=== PATIENT | female | born 1945 | race Caucasian/White ===

== ENCOUNTER → 2017-09-24 10:16 | Outpatient (CLI) | payer MEDICARE | END | disposition home or self-care (01) | LOC: D.CT 10:16 | DX: I73.9 Peripheral vascular disease, unspecified (principal) ==

== ENCOUNTER 2017-11-19 05:56 | Outpatient (CLI) | payer MEDICARE ==
[~2017-11-19] VITALS: Ht 157.5 cm; Wt 54.5 kg
--- NOTE | ~2017-11-19 | HEMODYNAMI ---
PATIENT:JEREMIAS ESCOBAR MEDICAL RECORD: [id number] : 49 LOCATION:[facility] ADMISSION DATE: 11/19/17 Generatedon:11/19/201711:10 Patient name: JEREMIAS ESCOBAR Patient #: [id number] SSN: D OB: 1945 Date of study: 11/19/2017 Page: Of Hemodynamic Procedure Report Patient Data Patient Demographics Procedure consent was obtained First Name: JEREMIAS Gender: Female Last Name: SHAWN : 1945 Middle Initial: MIGUE Age: 72 year(s) Patient #: [id number] Race: Unknown Additional ID: [id number] Contact details [address]: [address] [place] [address] State: [place] City: [place] Zip code: [address] Past Medical History Allergies: No allergy information Admission Admission Data Admission Date: 11/19/2017 Admission Time: 5:56 Procedure Procedure Types Cath Procedure Peripheral Cath Diagnostic Procedure Abd/Extremity Extremities Procedure Description Procedure Date Procedure Date: 11/19/2017 Procedure Start Time: 8:36 Procedure Staff Name Function Hermes Wong MD Performing Physician Roge Dueñas RT Monitor Agustina Kaur RT Scrub Galina Cadena RN Nurse Anitra Conroy RN Nurse Procedure Data Cath Procedure Fluoroscopy Diagnostic fluoroscopy Total fluoroscopy Time: time: 21.6 min 21.6 min Diagnostic fluoroscopy Total fluoroscopy dose: 301 dose: 301 mGy mGy Contrast Material Contrast Material Type Amount (ml) Isovue 300 180 Entry Location Entry Primary Successful Side Size Upsize Upsize Entry Closure Succes sful Closure Location (Fr) 1 (Fr) 2 (Fr) Remarks Device Remarks Femoral Left 5 Fr Exoseal artery Procedure Medications Medication Administration Route Dosage Lidocaine 1% added to field 20 Heparin Flush Bag added to field 3 bags (1000units/500ml NS) Versed 1 mg Fentanyl I.V. 50 mcg Versed 1 mg Fentanyl I.V. 50 mcg Heparin Bolus I.V. 5000 units Nitroglycerin IC/IA I.A. 200 mcg Nitroglycerin IC/IA I.A. 200 mcg Versed 1 mg Fentanyl I.V. 50 mcg Nitroglycerin IC/IA I.A. 200 mcg Versed 1 mg Fentanyl I.V. 50 mcg Heparin Bolus I.V. 2000 units Hemodynamics Rest Heart Rate: 74 (bpm) Snapshots Pre Cath Intra NCS Post Cath Vital Signs Time Heart Resp SPO2 etCO2 NIBP (mmHg) Rhythm Pain Sedation Rate (ipm) (%) (mmHg) Status Level (bpm) 8:21:49 72 22 96 0 147/62(135) NSR 0 (11) 10(A) , No pain 8:26:07 74 22 95 0 139/63(88) NSR 0 (11) 10(A) , No pain 8:30:23 70 23 94 26 119/59(89) NSR 0 (11) 10(A) , No pain 8:34:31 68 21 96 24 129/59(111) NSR 0 (11) 10(A) , No pain 8:38:45 61 20 94 20 123/52(95) NSR 0 (11) 10(A) , No pain 8:43:01 64 14 91 31.5 94/43(79) NSR 0 (11) 10(A) , No pain 8:47:05 60 23 95 22 101/49(86) NSR 0 (11) 10(A) , No pain 8:51:11 64 11 94 21 96/46(75) NSR 0 (11) 10(A) , No pain 8:55:16 65 13 92 22 102/45(84) NSR 0 (11) 10(A) , No pain 8:59:24 59 14 92 26 103/46(84) NSR 0 (11) 10(A) , No pain 9:03:32 67 29 97 26.2 103/44(79) NSR 0 (11) 10(A) , No pain 9:07:46 68 18 97 34.5 113/43(75) NSR 0 (11) 10(A) , No pain 9:11:54 71 18 97 30.8 105/53(82) NSR 0 (11) 10(A) , No pain 9:16:02 77 17 96 27.7 88/45(56) NSR 0 (11) 10(A) , No pain 9:20:06 68 22 96 30.8 96/43(77) NSR 0 (11) 10(A) , No pain 9:24:13 68 25 96 27.7 83/40(64) NSR 0 (11) 10(A) , No pain 9:27:28 64 12 96 31.5 91/44(64) NSR 0 (11) 10(A) , No pain 9:31:34 69 14 96 17.2 93/42(74) NSR 0 (11) 10(A) , No pain 9:35:39 63 22 97 30 92/40(61) NSR 0 (11) 10(A) , No pain 9:39:41 73 16 97 31.5 94/48(72) NSR 0 (11) 10(A) , No pain 9:43:42 67 17 98 31.5 109/50(66) NSR 0 (11) 10(A) , No pain 9:47:48 70 22 100 31.5 120/54(99) NSR 0 (11) 10(A) , No pain 9:51:58 67 23 100 30 121/58(93) NSR 0 (11) 10(A) , No pain 9:56:10 72 20 100 25.5 111/52(73) NSR 0 (11) 10(A) , No pain 10:00:16 82 10 99 36 102/57(83) NSR 0 (11) 10(A) , No pain 10:04:18 76 11 97 31.5 107/59(84) NSR 0 (11) 10(A) , No pain 10:08:25 69 11 95 0 115/51(71) NSR 0 (11) 10(A) , No pain 10:12:38 68 12 95 0.7 101/44(80) NSR 0 (11) 10(A) , No pain 10:16:45 61 9 95 21.7 92/45(71) NSR 0 (11) 10(A) , No pain 10:20:49 56 18 95 10.5 88/45(68) NSR 0 (11) 10(A) , No pain 10:24:51 64 19 94 9.7 104/47(72) NSR 0 (11) 10(A) , No pain 10:29:01 61 23 95 9.7 99/40(92) NSR 0 (11) 10(A) , No pain 10:33:08 60 19 94 6 88/43(67) NSR 0 (11) 10(A) , No pain 10:37:12 63 23 96 8.2 101/43(77) NSR 0 (11) 10(A) , No pain 10:41:20 62 24 9 100/46(88) NSR 0 (11) 10(A) , No pain 10:45:26 61 24 9.7 102/45(63) NSR 0 (11) 10(A) , No pain 10:49:29 62 9 76 16.5 118/58(108) NSR 0 (11) 10(A) , No pain 10:53:35 76 11 100 23.3 124/68(84) NSR 0 (11) 10(A) , No pain 10:57:45 75 13 27 125/59(95) NSR 0 (11) 10(A) , No pain 11:01:53 77 14 95 31.5 114/65(86) NSR 0 (11) 10(A) , No pain 11:05:57 67 12 31.6 122/68(93) NSR 0 (11) 10(A) , No pain 11:09:56 42.1 No Cuff NSR 0 (11) 10(A) , No pain Medications Time Medication Route Dose Verified Delivered Reason Notes Effec tiveness by by 8:15:24 Lidocaine 1% added 20ml Hermes Mirza used for to vial Judith Wong MD procedure field MARRERO 8:15:41 Heparin Flush added 3 Hermes Mirza used for Bag to bags Judith Wong MD procedure (1000units/500ml field MARRERO NS) 8:35:29 Versed 1 mg Hermes Simonody for Rafiq Wong RN sedation 8:36:26 Fentanyl I.V. 50 Hermes Anitra for mcg Rafiq Wong RN sedation 8:39:32 Versed 1 mg Hermes Anitra for Rafiq Wong RN sedation 8:39:39 Fentanyl I.V. 50 Hermes Ayoub for mcg Rafiq Wong RN sedation 9:10:48 Heparin Bolus I.V. 5000 Hermes Anitra used for units Rafiq Wong RN procedure 9:15:33 Nitroglycerin I.A. 200 Hermes Hermes used for IC/IA mcg Judith Wong MD procedure 9:20:53 Nitroglycerin I.A. 200 Hermes Mirza used for IC/IA mcg Judith Wong MD procedure 9:31:36 Versed 1 mg Hermes Anitra for Rafiq Wong RN sedation 9:31:45 Fentanyl I.V. 50 Hermes Anitra for mcg Rafiq Wong RN sedation 9:58:14 Nitroglycerin I.A. 200 Hermes Mirza used for IC/IA mcg Judith Wong MD procedure 10:06:03 Versed 1 mg Hermes Anitra for Rafiq Wong RN sedation 10:06:18 Fentanyl I.V. 50 Hermes Anitra for mcg Rafiq Wong RN sedation 10:14:06 Heparin Bolus I.V. 2000 Hermes Anitra used for units Rafiq Wong RN procedure Procedure Log Time Note 8:01:11 Galina Cadena RN sent for patient. Start room use. 8:01:14 Time tracking: Regular hours (M-F 7:00 - 5:00) 8:01:28 Plan of Care:Hemodynamics will remain stable., Cardiac rhythm will remain stable., Comfort level will be maintained., Respiratory function will remain adequate., Patient/ family verbilizes understanding of procedure., Procedure tolerated without complication., Recovers from procedure without complications.. 8:01:41 Patient received from Outpatients to IR Alert and oriented. Tansferred to table in Supine position. 8:01:44 Correct patient and procedure confirmed by team. 8:01:46 Signed procedure consent form obtained from patient. 8:01:49 ECG and BP/O2 sat monitors applied to patient. 8:01:51 Full Disclosure recording started 8:01:52 - 8:02:00 H&P Date Dictated: 11/19/2017 H&P Addendum completed by physician on day of procedure. (MUST COMPLETE FOR ALL OUTPATIENTS). 8:02:02 Pre-procedure instructions explained to patient. 8:02:02 Pre-op teaching completed and patient verbalized understanding. 8:02:13 Family in waiting room. 8:02:27 Use device set IR Diagnostic 8:02:29 ACIST Syringe (89506) opened to sterile field. 8:02:30 ACIST Hand Control (61516) opened to sterile field. 8:02:30 ACIST Manifold (08905) opened to sterile field. 8:02:30 Bag Decanter (2001S) opened to sterile field. 8:02:31 Sterile Angiographic Pack opened to sterile field. 8:02:31 Tegaderm 4 x 4 (1626W) opened to sterile field. 8:09:43 Patient NPO since Midnight. 8:09:50 Is the patient allergic to Iodine/contrast media? No. 8:09:51 Is patient on blood thinner?Yes 8:09:54 ACC The patient was administered the following blood thiners within the last 24 hours: ACCAspirin, ACCPlavix 8:09:56 - 8:09:57 ----Pre-sedation anethsthesia assessment.---- 8:10:00 Previous problem with sedation/anesthesia? No ? 8:10:01 Snore? Yes 8:10:03 Sleep apnea? No 8:10:04 Deviated septum? No 8:10:05 Opens mouth fully? Yes 8:10:06 Sticks out tongue? Yes 8:10:16 Airway obstruction? No ? 8:10:18 Dentures? No ? 8:10:26 Pre procedure: right dorsailis pedis pulse Doppler 8:10:30 Pre procedure: left dorsailis pedis pulse Doppler 8:10:33 Pre procedure: right posterior tibial pulse Doppler 8:10:37 Pre procedure: left posterior tibial pulse Doppler 8:10:42 Patient pain scale 0/10 no pain. 8:10:54 IV patent on arrival in left forearm with 0.9% NaCl at [facility]. 8:11:01 Bilateral groins area was prepped with chlora-prep and draped in steril e fashion 8:11:06 Alarms reviewed by R. N. 8:11:06 Sharps counted by scrub and verified by R.N. 8:11:17 Patient allergic to No allergy information 8:15:24 Lidocaine 1% 20ml vial added to field was administered by Hermes Wong MD; used for procedure; 8:15:41 Heparin Flush Bag (1000units/500ml NS) 3 bags added to field was administered by Hermes Wong MD; used for procedure; 8:20:34 Vital chart was started 8:20:35 Baseline sample Acquired. 8:35:29 Versed 1 mg was administered by Anitra Conroy RN; for sedation; 8:36:05 Physician arrived 8:36:06 --------ALL STOP TIME OUT------ 8:36:06 Final Timeout: patient, procedure, and site verified with staff and physician. All members of the team are in agreement. 8:36:09 Bilateral groins site verified by team. 8:36:15 Sedation plan: IV Moderate Sedation Medication:Versed, Fentanyl 8:36:26 Fentanyl 50 mcg I.V. was administered by Anitra Conroy RN; for sedation ; 8:36:41 Local anesthetic to left femerol artery with Lidocaine 1% by Hermes Wong MD.INITIAL ACCESS ONLY 8:37:07 Access obtained with 4Fr micropunture. 8:37:13 Angiodynamics Omniflush 5Fr 65cm (02980037) opened to sterile field. 8:37:13 SHEATH 5FR [place] (DZH710) opened to sterile field. 8:37:13 RATLIFF 260 wire (J19366) opened to sterile field. 8:37:14 DOC .035 wire (C57499) opened to sterile field. 8:37:14 SHEATH 6FR Destination (RSR01) opened to sterile field. 8:37:15 Micropuncture VSI 4FR kit opened to sterile field. 8:37:25 A 5 Fr sheath was inserted into the Left Femoral artery 8:39:32 Versed 1 mg was administered by Anitra Conroy RN; for sedation; 8:39:39 Fentanyl 50 mcg I.V. was administered by Anitra Conroy RN; for sedation ; 8:42:57 CHOICE PT Extra Support J 300cm guide wire ([id number]) opened to steril e field. 8:48:51 GLIDE WIRE .038 180cm ANGLED (UX8125) opened to sterile field. 8:51:04 GLIDE CATHETER 5FR ANGLED 100cm (CG508) opened to sterile field. 9:08:13 CXI SUPPORT .035 135 CM STR catheter (P86831) opened to sterile field. 9:10:48 Heparin Bolus 5000 units I.V. was administered by Anitra Conroy RN; use d for procedure; 9:11:00 GLIDE WIRE ANGLE 260cm (AJ3967) opened to sterile field. 9:11:18 TORQUE DEVICE PLASTIC .038 ( TD01) opened to sterile field. 9:15:33 Nitroglycerin IC/IA 200 mcg I.A. was administered by Hermes Wong MD; used for procedure; 9:19:16 INFLATOR BasixTOUCH (UF1888) opened to sterile field. 9:20:53 Nitroglycerin IC/IA 200 mcg I.A. was administered by Hermes Wong MD; used for procedure; 9:21:44 Hawkone Medium Atherectomy System (H1-M) opened to sterile field. 9:24:59 SPIDER EMBOLIC PROTECTION DEVICE 5MM ([id number]) opened to sterile field. 9:31:36 Versed 1 mg was administered by Anitra Conroy RN; for sedation; 9:31:45 Fentanyl 50 mcg I.V. was administered by Anitra Conroy RN; for sedation ; 9:58:14 Nitroglycerin IC/IA 200 mcg I.A. was administered by Hermes Wong MD; used for procedure; 10:06:03 Versed 1 mg was administered by Anitra Conroy RN; for sedation; 10:06:18 Fentanyl 50 mcg I.V. was administered by Anitra Conroy RN; for sedation ; 10:06:50 Inflate balloon Inflation number: 1 A IN.PACT Admiral 5 x 150 x 130 DCB balloon ([id number]) was prepped and advanced across the Proximal Superficial Femoral, Right, then inflated to 8 VASYL for 2:45 (min:sec). 10:14:06 Heparin Bolus 2000 units I.V. was administered by Anitra Conroy RN; use d for procedure; 10:15:17 Inflate balloon Inflation number: 1 A IN.PACT Admiral 4 x 150 x 130 DCB balloon ([id number]) was prepped and advanced across the Mid Superficial Femoral, Right, then inflated to 0 VASYL for 3:04 (min:sec). 10:24:49 Inflate balloon Inflation number: 1 A IN.PACT Admiral 4 x 150 x 130 DCB balloon ([id number]) was prepped and advanced across the Distal Superficial Femoral, Right, then inflated to 0 VASYL for 3:26 (min:sec). 10:25:24 Inflation number: 2 The IN.PACT Admiral 4 x 150 x 130 DCB balloon ([id number]) was reinflated across the Distal Superficial Femoral, Right, to 8 VASYL for 0:15 (min:sec). 10:41:40 Inflate balloon Inflation number: 3 A [place] 4 x 4 x 135 Balloon ([id number]) was prepped and advanced across the Distal Superficial Femoral, Right, then inflated to 16 VASYL for 0:06 (min:sec). 10:47:34 EXOSEAL 6Fr (EX600) opened to sterile field. 10:50:35 SHEATH 6FR [place] (ECG139) opened to sterile field. 10:53:11 Sheath removed intact; hemostasis achieved with Exoseal to the Left Femoral artery. 10:53:14 Procedure ended.(Physican Out) 10:55:24 Fluoroscopy time 21.60 minutes. 10:55:29 Fluoroscopy dose: 301 mGy 10:55:29 Flurop Dose total: 301 10:55:32 Sharps counted by scrub and verified by R.N. 10:55:34 Insertion/operative site no bleeding no hematoma. 10:55:39 Post-op/insertion site Left Femoral artery dressed using a 4 x 4 and Tegaderm. 10:55:47 Post left femerol artery:stable 10:55:49 Post Procedure Pulses reassessed and unchanged 10:55:52 Post procedure instruction explained to patient.Patient verbalizes understanding. 10:55:52 Patient needs reinforcement of post procedure teaching. 11:06:33 Contrast amount:Isovue 300 180ml. 11:09:43 Procedure and supply charges have been captured, reviewed, submitted an d are correct. 11:09:50 Report given to Outpatients. 11:09:54 Patient transfered to Outpatients with Stretcher. 11:10:29 Vital chart was stopped Intervention Summary Intervention Notes Time ActionType Lesion and Equipment Used Action# Pressure Duration Attributes 10:06:50 Inflate Proximal IN.PACT Admiral 1 8 02:45 balloon Superficial 5 x 150 x 130 Femoral, DCB balloon Right ([id number]) 10:15:17 Inflate Mid IN.PACT Admiral 1 0 03:04 balloon Superficial 4 x 150 x 130 Femoral, DCB balloon Right ([id number]) 10:24:49 Inflate Distal IN.PACT Admiral 1 0 03:26 balloon Superficial 4 x 150 x 130 Femoral, DCB balloon Right ([id number]) 10:25:24 Reinflate Distal IN.PACT Admiral 2 8 00:15 balloon Superficial 4 x 150 x 130 Femoral, DCB balloon Right ([id number]) 10:41:40 Inflate Distal [place]cross 4 x 4 3 16 00:06 balloon Superficial x 135 Balloon Femoral, ([id number]) Right Device Usage Item Name Manufacture Quantity Catalog Number [facility] Minimal Lot# / Charge Number Stock Stock Serial# Code ACIST Syringe Acist Medical 1 13128 266072 829481 34623 6 20 (88504) Systems Inc ACIST Hand Acist Medical 1 81699 860803 982110 21592 9 5 Control (94200) Systems Inc ACIST Manifold Acist Medical 1 26775 957685 392067 26968 7 5 (61163) Systems Inc Bag Decanter Microtek 1 2001S 923004 62984 03961 2 5 (2001S) Medical Inc. Sterile Cardinal 1 [id number] 245514 89322 7 5 Angiographic Health Pack Tegaderm 4 x 4 3M 1 1626W 067979 269414 78230 6 5 (1626W) Angiodynamics Angiodynamics 1 72300383 058848 770985 04479 1 5 Omniflush 5Fr 65cm (79150347) SHEATH 5FR Terumo 1 QWN001 549709 272649 84971 6 40 [place] (UKT134) RATLIFF 260 wire Cook Medical 1 R91813 877493 67819 45712 2 5 (A80510) DOC .035 wire Cook Medical 1 L88556 013974 02078 1 5 (W93243) SHEATH 6FR Terumo 1 RSR01 529701 39853 65274 0 5 Destination (RSR01) Micropuncture VSI VASCULAR 1 7266V 009881 23624 9 5 VSI 4FR kit SOLUTIONS CHOICE PT Extra [place] 1 [id number] 164038 113768 95118 6 5 [id number] Support J 300cm Scientific guide wire (8609987X5) GLIDE WIRE .038 Terumo 1 ID2995 161285 91005 7 5 180cm ANGLED (WW9135) GLIDE CATHETER Terumo 1 CG508 261985 98353 45241 2 4 5FR ANGLED 100cm (CG508) CXI SUPPORT Qifang Medical 1 K70981 044322 582318 94015 3 5 9656042 .035 135 CM STR catheter (Y35884) GLIDE WIRE Terumo 1 DP4497 496842 947970 37807 8 5 ANGLE 260cm (VA6234) TORQUE DEVICE [place] 1 TD01 236351 457724 01189 2 5 PLASTIC .038 ( Scientific TD01) INFLATOR [facility] 1 FH3930 209607 193972 15481 5 5 [id number] BasixTOUCH (TR1439) Hawkone Medium Medtronic 1 H1-M 562739 97323 996 5 Atherectomy System (H1-M) SPIDER EMBOLIC Medtronic 1 OJB5-EE-399-320 854632 84391 0 5 PROTECTION DEVICE 5MM ([id number]) IN.PACT Admiral Medtronic 1 [id number] 776916 3333517 95884 4 5 [id number] 5 x 150 x 130 DCB balloon ([id number]) IN.PACT Admiral Medtronic 2 [id number] 948485 5864667 40292 4 5 [id number] 4 x 150 x 130 [id number] DCB balloon ([id number]) Evercross 4 x 4 Medtronic 1 [id number] 271786 473535 47360 8 5 x 135 Balloon ([id number]) EXOSEAL 6Fr Cardinal 2 EX600 361810 642038 33622 3 10 [id number] (EX600) Health SHEATH 6FR Terumo 1 PAO220 482603 683759 15069 3 40 [place] (GAT031) Signature Audit [place] Stage Time Signature Unsigned Intra-Procedure 11/19/2017 Roge 11:10:25 AM Leana RT (R) (CV) Signatures Monitor : Roge Signature : Leana RT Date : Time : [id number] [place] [address]
[2017-11-19 06:21] LABS: BASOPHILS 0.4 % (0-2); EOSINOPHILS 3.3 % (0-7); HEMATOCRIT 50.3 % (36.0-48.0); HEMOGLOBIN 17.1 g/dL (12-16); IMMATURE GRANULOCYTES 0.5 % (0-5); LYMPHOCYTES 17.1 % (15-50); MCH 32.9 pg (26.0-34.0); MCV 96.9 fL (80.0-100.0); MEAN PLATELET VOLUME 9.4 fL (7.4-10.4); MONOCYTES 9.2 % (2-11); NEUTROPHILS 69.5 % (40-80); PLATELET COUNT 255 10x3/uL (130-400); RBC 5.19 10x6/uL (4.00-5.40); RDW 12.4 % (11.5-14.5); WBC 7.6 10x3/uL (4.8-10.8)
[2017-11-19 06:36] LABS: APTT 30.1 SECONDS (22.8-39.4); INR 0.89 (0.85-1.17); PROTIME 11.7 SECONDS (11.6-15.0)
[2017-11-19 06:38] LABS: CALC OSMOLALITY 283 mosm/kg (275-300); CALCIUM 9.2 mg/dL (8.5-10.1); CARBON DIOXIDE 30.4 mmol/L (21.0-32.0); CHLORIDE - SERUM 102 mmol/L (98-107); CREATININE - SERUM 0.7 mg/dL (0.6-1.3); GLUCOSE 130 mg/dL (74-106); POTASSIUM - SERUM 4.3 mmol/L (3.5-5.1); SODIUM 140 mmol/L (136-145); UREA NITROGEN 21 mg/dL (7-18); eGFR NON AFRICAN AMERICAN 88 mL/min (90-120)
[2017-11-19] MEDS ORDERED: ALENDRONATE SOD70 MG PO (07:21)
[2017-11-19] MEDS ORDERED: ZESTRIL20 MG PO (07:21)
[2017-11-19] MEDS ORDERED: RESTORIL15 MG (07:22)
[2017-11-19] MEDS ORDERED: PLAVIX75 MG PO (07:22)
[2017-11-19 07:44] VITALS: BP 120/58; Ht 157.5 cm; Wt 54.5 kg
== END 2017-11-19 14:15 | disposition home or self-care (01) ==
LOC: D.SP 05:56
PROVIDERS: General Practice
DX: I70.291 Other atherosclerosis of native arteries of extremities, right leg (principal); I70.92 Chronic total occlusion of artery of the extremities; Z01.812 Encounter for preprocedural laboratory examination

== ENCOUNTER → 2017-11-26 12:03 | Outpatient (CLI) | payer MEDICARE ==
[2017-11-19 07:44] VITALS: BMI 22.0
[~2017-11-26 12:03] MED LIST: ALENDRONATE SOD70 MG PO; PLAVIX75 MG PO; RESTORIL15 MG; ZESTRIL20 MG PO
== END | disposition home or self-care (01) ==
LOC: D.US 12:03
DX: I65.23 Occlusion and stenosis of bilateral carotid arteries (principal)

== ENCOUNTER → 2018-06-10 09:12 | Outpatient (CLI) | payer MEDICARE ==
[2017-11-19 07:44] VITALS: BMI 22.0
== END | disposition home or self-care (01) ==
LOC: D.US 05-05 11:00
PROVIDERS: ATTEND Internal Medicine Cardiovascular Disease
DX: I65.23 Occlusion and stenosis of bilateral carotid arteries (principal); I10 Essential (primary) hypertension; Z87.891 Personal history of nicotine dependence

== ENCOUNTER 2018-07-20 08:11 | Emergency (ER) | payer MEDICARE ==
[2018-07-20] MEDS ORDERED: ALBUTEROL SULF8.5 GM INH (09:22)
[2018-07-20] MEDS ORDERED: AUGMENTIN 875-11 TAB PO (09:22)
[2018-07-20] MEDS ORDERED: ULTRAM50 MG PO (09:22)
[2018-07-20 09:33] LABS: APPEARANCE CLEAR (CLEAR); BILIRUBIN NEGATIVE (NEGATIVE); COLOR YELLOW (YELLOW); GLUCOSE NEGATIVE (NEGATIVE); KETONE NEGATIVE (NEGATIVE); NITRITE NEGATIVE (NEGATIVE); PROTEIN NEGATIVE (NEGATIVE); UROBILINOGEN NORMAL (NORMAL)
== END 2018-07-20 09:45 | disposition home or self-care (01) ==
LOC: D.ER 08:11
PROVIDERS: Family Medicine
DX: J18.9 Pneumonia, unspecified organism (principal); S20.212A Contusion of left front wall of thorax, initial encounter; X58.XXXA Exposure to other specified factors, initial encounter; Y93.9 Activity, unspecified; Y92.9 Unspecified place or not applicable; F17.200 Nicotine dependence, unspecified, uncomplicated

== ENCOUNTER 2018-08-05 02:30 | Inpatient (IN) | payer MEDICARE ==
[~2018-08-05 02:30] MED LIST changes: +ALBUTEROL SULF8.5 GM INH; +AUGMENTIN 875-11 TAB PO; +ULTRAM50 MG PO
[2018-08-05 03:35] VITALS: BP 155/76
[2018-08-05 03:39] LABS: BASOPHILS 0.3 % (0-2); HEMATOCRIT 48.2 % (36.0-48.0); HEMOGLOBIN 16.9 g/dL (12-16); IMMATURE GRANULOCYTES 0.4 % (0-5); LYMPHOCYTES 11.2 % (15-50); MCH 32.5 pg (26.0-34.0); MCHC 35.1 g/dL (31.0-37.0); MCV 92.7 fL (80.0-100.0); MEAN PLATELET VOLUME 9.6 fL (7.4-10.4); MONOCYTES 8.3 % (2-11); NEUTROPHILS 77.8 % (40-80); PLATELET COUNT 278 10x3/uL (130-400); RDW 12.1 % (11.5-14.5); WBC 9.6 10x3/uL (4.8-10.8)
[2018-08-05 03:50] LABS: ALBUMIN 3.8 g/dL (3.4-5.0); ALKALINE PHOSPHATASE 69 U/L (46-116); ALT (SGPT) 22 U/L (10-68); APTT 33.2 SECONDS (22.8-39.4); BILIRUBIN - TOTAL 0.28 mg/dL (0.2-1.3); CALC OSMOLALITY 276 mosm/kg (275-300); CALCIUM 9.7 mg/dL (8.5-10.1); CARBON DIOXIDE 29.7 mmol/L (21.0-32.0); CHLORIDE - SERUM 101 mmol/L (98-107); CREATININE - SERUM 0.8 mg/dL (0.6-1.3); GLUCOSE 124 mg/dL (74-106); INR 0.98 (0.85-1.17); POTASSIUM - SERUM 4.1 mmol/L (3.5-5.1); PROTEIN - SERUM 7.2 g/dL (6.4-8.2); PROTIME 12.5 SECONDS (11.6-15.0); SODIUM 138 mmol/L (136-145); UREA NITROGEN 13 mg/dL (7-18); eGFR NON AFRICAN AMERICAN 75 mL/min (90-120)
[2018-08-05 04:02] LABS: CKMB 1.2 U/L (0.0-3.6); CREATINE KINASE 27 UL (21-215); PRO BNP 146 pg/mL (0-125); TROPONIN-I < 0.017 ng/mL (0.000-0.060)
[2018-08-05 04:23] VITALS: BP 156/69
--- NOTE | 2018-08-05 05:40 | NUR ---
ZITHROMYCIN INFUSION COMPLETE AT THIS TIME.
--- NOTE | 2018-08-05 05:42 | NUR ---
PT AMBULATED TO BATHROOM AT THIS TIME.
[2018-08-05 05:43] VITALS: BP 164/76
--- NOTE | 2018-08-05 07:17 | NUR ---
BEDSIDE REPORT HANDED OFF VIA SBAR TO YASEMIN ABEL.
--- NOTE | 2018-08-05 07:17 | NUR ---
BEDSIDE REPORT RECIEVED FROM YASEMIN TAM. PT REQUESTING PRN UDT AT THIS TIME. RESPIRATORY NOTIFIED. BREAKFAST TRAY PROVIDED. DENIES ANY OTHER NEEDS AT THIS TIME.
[2018-08-05 07:18] VITALS: BP 157/75
[2018-08-05 08:08] VITALS: BMI 22.5
[2018-08-05] MEDS ORDERED: COZAAR50 MG PO (08:08)
--- NOTE | 2018-08-05 15:08 | NUR ---
DR ELY NOTIFIED OF ELEVATED LACTIC ACID, VERBAL ORDER RECEIVED FOR CONSULT TO DR GUILLEN.
--- NOTE | 2018-08-05 18:32 | NUR ---
RECEIVED REPORT FROM MEAGAN IN THE ED. PATIENT TO UNIT SOON.
--- NOTE | 2018-08-05 18:51 | NUR ---
RECEIVED PATIENT FROM ED AT THIS TIME. PATIENT SITTING TO BED. ALERT/ORIENTED. CALL LIGHT WITHIN REACH. NO DISTRESS. PUT PATIENTS DAUGHTERS NUMBER ON WHITE BOARD.
--- NOTE | 2018-08-05 19:14 | NUR ---
CHECKED ON PT BREIFLY AND INTRODUCED MYSELF AWAKE AND OX4
--- NOTE | 2018-08-05 19:35 | NUR ---
AWAKE AND ALERT LCTA SKIN INTACT WARM AND DRY COUGH NOTED AND PT CO PAIN WITH COUGH IV SL TO LEFT HAND BED IS LOW AND LOCKED SRX2 AND CALL LIGHT IN REACH
[2018-08-05 21:27] VITALS: BP 140/69
[2018-08-06 00:38] VITALS: BP 148/69
[2018-08-06 05:37] LABS: BASOPHILS 0.1 % (0-2); EOSINOPHILS 0 % (0-7); HEMATOCRIT 44.4 % (36.0-48.0); HEMOGLOBIN 15.6 g/dL (12-16); IMMATURE GRANULOCYTES 0.3 % (0-5); LYMPHOCYTES 4.5 % (15-50); MCH 32.1 pg (26.0-34.0); MCHC 35.1 g/dL (31.0-37.0); MCV 91.4 fL (80.0-100.0); MEAN PLATELET VOLUME 9.9 fL (7.4-10.4); MONOCYTES 4.8 % (2-11); NEUTROPHILS 90.3 % (40-80); PLATELET COUNT 277 10x3/uL (130-400); RBC 4.86 10x6/uL (4.00-5.40)
[2018-08-06 05:41] LABS: WBC 14.3 10x3/uL (4.8-10.8)
[2018-08-06 06:15] VITALS: BP 147/82
[2018-08-06 06:26] LABS: ALBUMIN 3.2 g/dL (3.4-5.0); ALKALINE PHOSPHATASE 58 U/L (46-116); ALT (SGPT) 18 U/L (10-68); BILIRUBIN - TOTAL 0.18 mg/dL (0.2-1.3); CALC OSMOLALITY 274 mosm/kg (275-300); CALCIUM 8.8 mg/dL (8.5-10.1); CARBON DIOXIDE 25.4 mmol/L (21.0-32.0); CHLORIDE - SERUM 99 mmol/L (98-107); CREATININE - SERUM 0.8 mg/dL (0.6-1.3); PROTEIN - SERUM 6.5 g/dL (6.4-8.2); SODIUM 134 mmol/L (136-145); UREA NITROGEN 14 mg/dL (7-18); eGFR NON AFRICAN AMERICAN 75 mL/min (90-120)
[2018-08-06 06:27] LABS: GLUCOSE 200 mg/dL (74-106)
[2018-08-06 08:03] VITALS: BP 127/78
[2018-08-06] MEDS ORDERED: OXYBUTYNIN CHLOR5 MG PO (08:15)
--- NOTE | 2018-08-06 08:15 | NUR ---
AM ROUNDS COMPLETED. INTRODUCED MYSELF TO PT PRIMARY RN FOR TODAYS SHIFT. SHIFT ASSESSMENT COMPLETED. PT IS A&O SITTING UP IN BED RESTING QUIETLY. RR NONLABORED ON RA. PT C/O DIARRHEA REQUESTING A PRN TO HELP STOP IT WILL PAGE PRIMARY AND TRY TO GET HER ONE. PTS MEDICATIONS WERE INCORRECT ALONG WITH INCORRECT PHARMACY. UPDATED MEDICATION PER ACCURATE CURRENT LIST PER PT AND AND THEY VOICED THANKS, WILL TELL PRIMARY TO GET INCORRECT MEDICATIONS DISCONTINUED OFF EMAR. PT DENIES ANY FURTHER NEEDS AT THIS TIME. RESTING QUIETLY FINISHING UP BREAKFAST. CL IN REACH, BED IN LOWEST, SIDE RAILS X2. WILL CTM.
--- NOTE | 2018-08-06 11:41 | NUR ---
PT NOW HAVING FORMED STOOL. UNABLE TO SEND SPECIMEN IF FORMED. WILL CONTINUE TO MONITER FOR ANY FURTHER DIARRHEA AND CHECK FOR CDT.
[2018-08-06 11:50] VITALS: BP 160/75
--- NOTE | 2018-08-06 13:30 | NUR ---
PT UP AMBULATING AROUND NURSES STATION. DENIES ANY PAIN OR SOB VERY ANXIOUS ABOUT GETTING BETTER AND BEING DISCHARGED MANISHA. WILL CTM.
[2018-08-06 13:59] VITALS: BMI 21.5
[2018-08-06 15:05] VITALS: BP 141/69
--- NOTE | 2018-08-06 18:03 | NUR ---
STOOL NOT OBTAINED PT HAS NOT HAD ANY FURTHER DIARRHEA. WILL COLLECT WHEN ITS AVAILABLE. PT ALSO UNABLE TO PROVIDE SPUTUM SPECIMEN BUT AWARE THAT WE NEED ONE. NO CURRENT NEEDS PT JUST STILL VERY ANXIOUS ABOUT GETTING DISCHARGE AND STATES SHE HAS TO GO TOMORROW NO MATTER WHAT AND CAN JUST F/U AT A LATER TIME. WILL CTM.
--- NOTE | 2018-08-06 19:45 | NUR ---
PT SITTING UP ON SIDE OF BED ALERT AND ORIENTED. NO S/S OF DISTRESS. DOUGHTER AT BEDSIDE. PT COMPLAINED OF PAIN AT IV SITE. IV PATNENT. NO S/S OF INFILTRATION. BED LOW CALL LIGHT WITHIN REACH. WILL CONTINUE TO MONITOR.
[2018-08-06 21:21] VITALS: BP 183/75
[2018-08-07] VITALS (7 sets, daily range): BP systolic 152–163; BP diastolic 65–87
--- NOTE | 2018-08-07 03:18 | NUR ---
PT UP TO BATHROOM WITH SOB ON EXERTION. PT CAUGHING DRY HACK. INSTRUCTED PT TO DEEP BREATH AND COUGH. PT HAS FAMILY AT BEDSIDE. BED LOW CALL LIGHT WITHIN REACH. WILL CONTINUE TO MONITOR.
--- NOTE | 2018-08-07 03:30 | NUR ---
PT O2-91%. PUT PT ON 2L O2 NC. O2 UP TO 96%. RR-20. BED LOW CALL LIGHT WITHIN REACH. WILL CONTINUE TO MONITOR.
[2018-08-07 05:15] LABS: BASOPHILS 0 % (0-2); EOSINOPHILS 0 % (0-7); HEMATOCRIT 44.3 % (36.0-48.0); HEMOGLOBIN 15.5 g/dL (12-16); IMMATURE GRANULOCYTES 0.3 % (0-5); LYMPHOCYTES 3.7 % (15-50); MCH 32.3 pg (26.0-34.0); MCV 92.3 fL (80.0-100.0); MEAN PLATELET VOLUME 9.2 fL (7.4-10.4); MONOCYTES 5.6 % (2-11); NEUTROPHILS 90.4 % (40-80); PLATELET COUNT 250 10x3/uL (130-400); RDW 12.7 % (11.5-14.5); WBC 14.7 10x3/uL (4.8-10.8)
[2018-08-07 05:38] LABS: ALBUMIN 3.3 g/dL (3.4-5.0); ANION GAP 16.5 mmol/L (8-16); BILIRUBIN - TOTAL 0.28 mg/dL (0.2-1.3); CALCIUM 8.6 mg/dL (8.5-10.1); CARBON DIOXIDE 24.1 mmol/L (21.0-32.0); CREATININE - SERUM 0.9 mg/dL (0.6-1.3); POTASSIUM - SERUM 4.6 mmol/L (3.5-5.1); PROTEIN - SERUM 6.9 g/dL (6.4-8.2)
--- NOTE | 2018-08-07 08:00 | NUR ---
AM ROUNDS COMPLETED. INTRODUCED MYSELF TO PT PRIMARY RN FOR TODAYS SHIFT. PT IS A&O SITTING UP ON EDGE OF BED VISITING WITH FAMILY AND EATING BREAKFAST. SHIFT ASSESSMENT COMPLETED. RR NONLABORED ON RA. PT HAS VERY DRY HACKING COUGH BUT REFUSES WANTING ANY COUGH SYRUP TO SOOTHE IT. PT IS VERY RESISTANT TO ANY ASSISTANCE AND CONTINUOUSLY BEGGING TO BE DISCHARGED. DISCUSSED DISEASE PROCESS AND TOLD HER WE WILL SEE WHAT HAS TO SAY AFTER REVIEWING CT RESULTS. PT VERBALIZED UNDERSTANDING AND STATES SHE IS JUST READY TO SEE HER DOGS AT HOME. NO IMMEDIATE NEEDS AT THIS TIME. PT DENIES ANY FURTHER DIARRHEA AFTER YESTERDAYS 1 EPISODE. CL IN REACH, BED IN LOWEST, SIDE RAILS X2. WILL CTM.
--- NOTE | 2018-08-07 10:45 | NUR ---
AT BEDSIDE DISCUSSING DISEASE PROCESS AND PLAN OF CARE. PT STILL VERY ADAMENT ABOUT BEING DISCHARGED. NO NEW ORDERS AT THIS TIME. RR NONLABORED ON RA. WILL CTM.
[2018-08-07 12:41] LABS: BASOPHILS 0 % (0-2); EOSINOPHILS 0 % (0-7); HEMATOCRIT 47.7 % (36.0-48.0); HEMOGLOBIN 16.5 g/dL (12-16); IMMATURE GRANULOCYTES 0.4 % (0-5); LYMPHOCYTES 2.4 % (15-50); MCH 32.2 pg (26.0-34.0); MCHC 34.6 g/dL (31.0-37.0); MEAN PLATELET VOLUME 9.7 fL (7.4-10.4); MONOCYTES 3.1 % (2-11); NEUTROPHILS 94.1 % (40-80); PLATELET COUNT 278 10x3/uL (130-400); RBC 5.13 10x6/uL (4.00-5.40); RDW 12.7 % (11.5-14.5)
[2018-08-07 12:58] LABS: APTT 37.1 SECONDS (22.8-39.4); INR 1.09 (0.85-1.17); PROTIME 13.6 SECONDS (11.6-15.0)
--- NOTE | 2018-08-07 15:46 | NUR ---
PAGED TO LET HIM KNOW PT IS ON PLAVIX AND LOVENOX AND REC'D BOTH TODAY. NOW BOTH PLACED ON HOLD AND PT WILL BE HAVING BRONCHOSCOPY TOMORROW OF NOW.
--- NOTE | 2018-08-07 19:10 | NUR ---
PT REQUESTING ANXIETY MEDICATION. PT STATES DR. RONQUILLO ORDERED. NO ORDERS IN JUN. DR. GUILLEN PCT PAGED. PT ANXIOUS TO GO HOME AFTER PROCEDURE. BED LOW CALL LIGHT WITHIN REACH. WILL CONTINUE TO MONITOR.
--- NOTE | 2018-08-07 20:20 | NUR ---
DR. GUILLEN CALLED BACK. NO AXIETY MEDICATION ORDERED. ORDERS TO CONTINUE MORPHINE GIVEN.
--- NOTE | 2018-08-08 00:16 | NUR ---
PT AND EXPRESSED CONCERN WITH WHETHER OR NOT PT WILL GET TO LEAVE AFTER PROCEDURE. IS ADDIMENT THAT SHE GO HOME TOMORROW WHERE SHE CAN RECOVER. PT STATES, "THIS PLACE IS MAKING HER ANXIOUS. MARBELLA NEVER SEEN HER LIKE THIS." EXPLAINED TO AND THAT THE DOCTOR WOULD BE THE ONE TO MAKE THAT DECISION AFTER PROCEDURE. BED LOW, CALL LIGHT WITHIN REACH, WILL CONTINUE TO MONITOR.
[2018-08-08 00:54] VITALS: BP 179/79
--- NOTE | 2018-08-08 01:36 | NUR ---
PT RESTING COMFORTABLY IN BED WITH EYES CLOSED. RR EVEN AND UNLABORED. NO S/S OF DISTRESS. PT DENIES ANY NEEDS AT THIS TIME. BED LOW CALL LIGHT WITHIN REACH. WILL CONTINUE TO MONITOR.
--- NOTE | 2018-08-08 02:41 | NUR ---
PT COMPLAINS OF PAIN IN LOWER RIGHT RIB AREA. PT ALSO COMPLAINS OF NOT BEING ABLE TO SLEEP. PRN PAIN MED GIVEN. SEE MAR. BED LOW CALL LIGHT WITHIN REACH. WILL CONTINUE TO MONITOR.
--- NOTE | 2018-08-08 03:16 | NUR ---
I have reviewed this patient and I concur with the Shift Assessment completed by the Licensed Practical Nurse today this shift.
[2018-08-08 05:37] VITALS: BP 165/90
[2018-08-08 06:17] LABS: BASOPHILS 0 % (0-2); EOSINOPHILS 0 % (0-7); HEMATOCRIT 46.4 % (36.0-48.0); HEMOGLOBIN 16.2 g/dL (12-16); IMMATURE GRANULOCYTES 0.4 % (0-5); LYMPHOCYTES 5.3 % (15-50); MCH 32.4 pg (26.0-34.0); MCHC 34.9 g/dL (31.0-37.0); MCV 92.8 fL (80.0-100.0); MEAN PLATELET VOLUME 9.4 fL (7.4-10.4); MONOCYTES 9.3 % (2-11); PLATELET COUNT 285 10x3/uL (130-400); RDW 12.9 % (11.5-14.5); WBC 11.7 10x3/uL (4.8-10.8)
[2018-08-08 06:32] LABS: ALBUMIN 3.4 g/dL (3.4-5.0); ALKALINE PHOSPHATASE 58 U/L (46-116); ALT (SGPT) 39 U/L (10-68); BILIRUBIN - TOTAL 0.36 mg/dL (0.2-1.3); CALC OSMOLALITY 280 mosm/kg (275-300); CHLORIDE - SERUM 105 mmol/L (98-107); CREATININE - SERUM 0.7 mg/dL (0.6-1.3); GLUCOSE 144 mg/dL (74-106); POTASSIUM - SERUM 4.5 mmol/L (3.5-5.1); PROTEIN - SERUM 6.8 g/dL (6.4-8.2); SODIUM 140 mmol/L (136-145); UREA NITROGEN 11 mg/dL (7-18); eGFR NON AFRICAN AMERICAN 87 mL/min (90-120)
--- NOTE | 2018-08-08 07:30 | NUR ---
A/A/OX4. UP AMB IN HALLWAYS AND ROOM. REMAINS NPO FOR BRONCH THIS AM AND VERBALIZES UNDERSTANDING OF THIS. C/O SOME SORENESS IN LEFT RIBCAGE AREA FROM COUGHING SO MUCH. NO REQUESTS VOICED. WILL CONTINUE POC.
[2018-08-08 09:30] VITALS: BP 169/85
--- NOTE | 2018-08-08 09:50 | NUR ---
PT TAKEN VIA BED FOR BRONCHOSCOPY.
[2018-08-08 11:00] VITALS: BP 168/81
--- NOTE | 2018-08-08 11:11 | NUR ---
RETURNED TO ROOM VIA BED. A/A/OX4. V/S STABLE WITH NO PROBLMES NOTED. INSTRUCTED NOTHING TO EAT OR DRINK UNTIL 1245 AND VERBALIZES UNDERSTANDING. FAMILY MEMBERS AT BEDSIDE.
--- NOTE | 2018-08-08 12:23 | NUR ---
I have reviewed this patient and I concur with the Shift Assessment completed by the Licensed Practical Nurse today this shift.
--- NOTE | 2018-08-08 14:41 | NUR ---
Nutrition follow-up: Pt has been NPO for bronchoscopy PO intake of regular diet has been ~60% average of meals Labs reviedwed Wt: 158# RDN following.
[2018-08-08] MEDS ORDERED: ANORO ELLIPTA1 EACH INH (15:55)
[2018-08-08] MEDS ORDERED: SINGULAIR10 MG PO (15:59)
[2018-08-08] MEDS ORDERED: MUCINEX600 MG PO (16:00)
[2018-08-08] MEDS ORDERED: FLAGYL500 MG PO (16:03)
[2018-08-08] MEDS ORDERED: DOXYCYCLINE HY100 M2 PO (16:03)
[2018-08-08] MEDS ORDERED: PREDNISONE10 MG PO (16:04)
--- NOTE | 2018-08-08 16:13 | MORECARE ---
CASE MANAGEMENT DISCHARGE SUMMARY PATIENT: JEREMIAS ESCOBAR UNIT: [id number] ADM DATE: 08/05/18 AGE: 73 : [birth year] SEX: F ROOM/BED: D.1129 AUTHOR: NIDIA BUSBY PHYSICIAN: REFERRING PHYSICIAN: DEVIN MURGUIA MD DATE OF SERVICE: 08/08/18 Discharge Plan Patient Name: JEREMIAS ESCOBAR Facility: [facility]:[place] : 1945 Planned Disposition: Home Anticipated Discharge Date: 08/08/18 Discharge Date: Expected LOS: 3 Initial Reviewer: [id number] Initial Review Date: 08/08/2018 Generated: 08/08/18 5:13 pm Comments DCP- Discharge Planning Updated by [email or web address]: Maximus Latif on 08/08/18 3:[address] Patient Name: JEREMIAS ESCOBAR Admission Status: ER Accout number: [id number] Admission Date: 08-05-2018 : 1945 Admission Diagnosis:SHORTNESS OF BREATH Attending: DEVIN REN Current LOS: 3 Anticipated DC Date: 08-08-2018 Planned Disposition: Home Primary Insurance: MEDICARE A & B Discharge Planning Comments: CM MET WITH PT AND SPOUSE IN ROOM TO DISCUSS DISCHARGE PLANNING AND NEEDS. JEREMIAS ESCOBAR provided verbal consent to discuss current and ongoing needs with/in the presence of: SPOUSE. YUNIEL. PT REPORTS LIVING AT HOME INDEPENDENTLY WITH HER 16 YEAR OLD DAUGHTER. PT HAS NO MEDICAL EQUIPMENT AND NO OUTSIDE SERVICES ASSISTING IN THE HOME. CM DISCUSSED AVAILABILITY OF HOME HEALTH, REHAB SERVICES AND MEDICAL EQUIPMENT. PT REPORTS THERAPIST TOLD HER SHE QUALIFIES FOR HOME OXYGE; REPIRATORY THERAPIST CAME INTO ROOM, PROVIDED OXYGEN TESTING OF 88% ON ROOM AIR ON EXERTION WITH RECOVERY ON 2LNC 95%. PT HAS NOT PREFERENCE ON PROVIDER; PROVIDER LISTING GIVEN, PT SIGNED NO PREFERENCT ON PROVIDER FOR CHOICE. PT REPORTS HER SPOUSE WILL PICK HER UP FOR DISCHARGE HOME. IMPORTANT MESSAGE FROM MEDICARE PROVIDED AND EXPLAINED. CM SPOKE TO DR. GUILLEN WHO WILL SIGN OXYGEN ORDERS; CM ASSISTED WITH LOOKING UP COVERED INHALERS FOR PT'S SILVER SCRIPTS PLAN, PROVIDED TO DR. GUILLEN. CM CALLED [facility], , SPOKE TO THAD AND PROVIDED REFERRAL INFORMATION. CM FAXED REFERRAL TO [facility], . THAD ADVISED THEY WILL DELIVER PORTABLE OXYGEN TO HOSPITAL TODAY AND WILL ARRANGE HOME OXYGEN WHEN PT ARRIVES AT HOME AFTER DISCHARGE. ASSOCIATE PROFESSOR OF PHILOSOPHY NURSE NOTIFIED. Vertical Roll Operator: Maximus Latif DCP- Discharge Planning Updated by [id number]: Josefa Pisano on 08/05/18 4:[address] CM met with patient to discuss dc plans/needs. Spouse is at bedside and she gives permission to proceed with assessment. Patient is alert/oriented, gives permission to complete CM assessment. PCP: Dr. Ricci Pharmacy: [facility]. Emergency contact: Yuniel Escobar (spouse) #[phone]. Independent/Partial ADL's. HHS: NA. DME: NA. Additional services and feels safe returning to previous environment: Yes. Patient denies being hospitalized within the past 30 days. CM will follow and assist PRN. DCPIA - Discharge Planning Initial Assessment Updated by [id number]: Maximus Latif on 08/08/18 4:07 pm * Is the patient Alert and Oriented? Yes * How many steps to enter\exit or inside your home? * PCP DR RICCI * Pharmacy [facility] * Preadmission Environment Home with Family * ADLs Independent * Equipment None * Other Equipment NO MEDICAL EQUIPMENT PROVIDER PREFERENCE * List name and contact numbers for known caregivers / representatives who currently or will assist patient after discharge: YUNIEL ESCOBAR, SPOUSE, * Verbal permission to speak to the caregivers and representatives has been obtained from the patient. Yes * Community resources currently utilized None * Please name any agencies selected above. NONE * Additional services required to return to the preadmission environment? No * Can the patient safely return to the preadmission environment? Yes * Has this patient been hospitalized within the prior 30 days at any hospital? No External Providers External Provider: [facility] Next Contact Date: 08/08/2018 Service Request Date: Service Type: Resolution: Reviewer: Comments: Coverage Notice Reviewer: [id number] - Maximus Latif Notice Issued Date-Time: 08/08/2018 15:10 Notice Type: IM Discharge Notice Notice Delivered To: Patient Relationship to Patient: Offshore Diver Name: Delivery Method: HAND - Hand Delivered [place] Days: Prior Verbal Notification: Recipient Understood Notice: Yes Recipient Signature: Yes Med Rec Note Co-signed by Attending: Coverage Notice Comment: Reviewer: [id number] - Maximus Latif Notice Issued Date-Time: 08/08/2018 15:15 Notice Type: Patient Choice Letter Notice Delivered To: Patient Relationship to Patient: Offshore Diver Name: Delivery Method: HAND - Hand Delivered [place] Days: Prior Verbal Notification: Recipient Understood Notice: Yes Recipient Signature: Yes Med Rec Note Co-signed by Attending: Coverage Notice Comment: NO PREFERENCE ON DME PROVIDER Patient Name: JEREMIAS ESCOBAR Page [id number] at 1613 All edits/amendments must be made on the electronic document DICTATION DATE: 08/08/181612 PINION AND WHEEL TRUER: CRUZ 08/08/181612 RPT#: [id number] DC DATE: STATUS: ADM IN [facility] [address] [place] [address] END OF REPORT
--- NOTE | 2018-08-08 16:54 | NUR ---
DISCHARGE INSTRUCTIONS REVIEWED WITH PT AND VERBALIZED UNDERSTANDING WITH NO QUESTIONS. 02 WILL BE DELIVERED TO HER HOME. LEFT FLOOR VIA W/C WITH ALL PERSONAL BELONGINGS. LEFT FACILITY VIA PRIVATE VEHICLE WITH . SL REMOVED WITH TIP INTACT.
[2018-08-09 22:05] LABS: AFB SPECIMEN PROCESSING Concentration (())
[2018-08-11 13:10] LABS: FUNGUS STAIN Final report (())
[2018-08-17 13:07] LABS: IMMUNOGLOBULIN E 61 IU/mL (6-495)
[2018-08-21 15:12] LABS: FUNGUS CULTURE RESULT 1 Candida albicans (())
[2018-08-22 08:31] LABS: FUNGUS CULTURE RESULT 3 A
[2018-09-04 14:11] LABS: FUNGUS MYCOLOGY CULTURE Final report (())
[2018-09-27 14:08] LABS: ACID FAST CULTURE Negative (()); ACID FAST SMEAR Negative (())
== END 2018-08-08 16:56 | disposition home or self-care (01) | DRG 178 ==
LOC: D.ER 02:30 → D.M2 03:59 → D.EDHOLD 03:59 → D.M2 16:45
PROVIDERS: Family Medicine; Internal Medicine Pulmonary Disease; ADMIT Family Medicine Adult Medicine; ATTEND Family Medicine Adult Medicine
PROC: 0B988ZZ Drainage of Left Upper Lobe Bronchus, Via Natural or Artificial Opening Endoscopic (ICD-10-PCS; 2018-08-08)
PROC: 0BB88ZX Excision of Left Upper Lobe Bronchus, Via Natural or Artificial Opening Endoscopic, Diagnostic (ICD-10-PCS; principal; 2018-08-08 10:00)
DX: J15.212 Pneumonia due to Methicillin resistant Staphylococcus aureus (principal); J44.0 Chronic obstructive pulmonary disease with (acute) lower respiratory infection; J44.1 Chronic obstructive pulmonary disease with (acute) exacerbation; F17.213 Nicotine dependence, cigarettes, with withdrawal; J15.6 Pneumonia due to other Gram-negative bacteria; J30.9 Allergic rhinitis, unspecified; I10 Essential (primary) hypertension; I73.9 Peripheral vascular disease, unspecified; F41.9 Anxiety disorder, unspecified; R91.8 Other nonspecific abnormal finding of lung field; R19.7 Diarrhea, unspecified

== ENCOUNTER 2018-08-25 06:26 | Outpatient (CLI) | payer MEDICARE ==
[~2018-08-25] VITALS: Ht 157.5 cm; Wt 55.9 kg
[~2018-08-25 06:26] MED LIST changes: +ANORO ELLIPTA1 EACH INH; +COZAAR50 MG PO; +DOXYCYCLINE HY100 M2 PO; +FLAGYL500 MG PO; +MUCINEX600 MG PO; +OXYBUTYNIN CHLOR5 MG PO; +PREDNISONE10 MG PO; +SINGULAIR10 MG PO
[2018-08-25 07:21] LABS: BASOPHILS 0.7 % (0-2); EOSINOPHILS 2.3 % (0-7); HEMATOCRIT 49.6 % (36.0-48.0); HEMOGLOBIN 17.1 g/dL (12-16); IMMATURE GRANULOCYTES 1.1 % (0-5); LYMPHOCYTES 13.4 % (15-50); MCHC 34.5 g/dL (31.0-37.0); MCV 92.9 fL (80.0-100.0); MEAN PLATELET VOLUME 9.4 fL (7.4-10.4); MONOCYTES 11.3 % (2-11); NEUTROPHILS 71.2 % (40-80); PLATELET COUNT 239 10x3/uL (130-400); RBC 5.34 10x6/uL (4.00-5.40); RDW 12.5 % (11.5-14.5); WBC 8.9 10x3/uL (4.8-10.8)
[2018-08-25 07:24] LABS: CALC OSMOLALITY 278 mosm/kg (275-300); CALCIUM 9.4 mg/dL (8.5-10.1); CHLORIDE - SERUM 101 mmol/L (98-107); CREATININE - SERUM 0.7 mg/dL (0.6-1.3); GLUCOSE 117 mg/dL (74-106); SODIUM 139 mmol/L (136-145); UREA NITROGEN 13 mg/dL (7-18); eGFR NON AFRICAN AMERICAN 87 mL/min (90-120)
[2018-08-25 07:29] LABS: INR 0.93 (0.85-1.17)
[2018-08-25 08:10] VITALS: BP 113/60; Ht 157.5 cm; Wt 55.9 kg
== END 2018-08-25 15:00 | disposition home or self-care (01) ==
LOC: D.CT 06:26
PROVIDERS: Specialist; ATTEND Internal Medicine Pulmonary Disease
DX: R91.8 Other nonspecific abnormal finding of lung field (principal); Z53.8 Procedure and treatment not carried out for other reasons

== ENCOUNTER 2018-09-04 08:21 | Outpatient (CLI) | payer MEDICARE ==
[~2018-09-04] VITALS: Ht 157.5 cm; Wt 55.3 kg
[2018-09-04 09:10] LABS: CALC OSMOLALITY 247 mosm/kg (275-300); CALCIUM 9.2 mg/dL (8.5-10.1); CHLORIDE - SERUM 89 mmol/L (98-107); CREATININE - SERUM 0.5 mg/dL (0.6-1.3); GLUCOSE 132 mg/dL (74-106); POTASSIUM - SERUM 4.6 mmol/L (3.5-5.1); SODIUM 123 mmol/L (136-145); UREA NITROGEN 7 mg/dL (7-18); eGFR NON AFRICAN AMERICAN > 90 mL/min (90-120)
[2018-09-04 09:12] LABS: BASOPHILS 0.3 % (0-2); EOSINOPHILS 0.7 % (0-7); HEMATOCRIT 43.8 % (36.0-48.0); HEMOGLOBIN 16.5 g/dL (12-16); IMMATURE GRANULOCYTES 0.4 % (0-5); MCH 32.4 pg (26.0-34.0); MCHC 37.7 g/dL (31.0-37.0); MCV 85.9 fL (80.0-100.0); MEAN PLATELET VOLUME 8.7 fL (7.4-10.4); MONOCYTES 8.8 % (2-11); NEUTROPHILS 76.8 % (40-80); RDW 11.5 % (11.5-14.5); WBC 7.5 10x3/uL (4.8-10.8)
[2018-09-04 09:13] LABS: PLATELET COUNT 299 10x3/uL (130-400)
[2018-09-04 09:26] LABS: APTT 36.8 SECONDS (22.8-39.4); INR 1.1 (0.85-1.17); PROTIME 13.7 SECONDS (11.6-15.0)
[2018-09-04] MEDS ORDERED: ALEVE220 MG PO (10:31)
[2018-09-04] MEDS ORDERED: ACETAMINOPHEN500 M1 PO (10:31)
[2018-09-04 10:41] VITALS: BP 178/94; Ht 157.5 cm; Wt 55.3 kg
--- NOTE | 2018-09-04 14:10 | NUR ---
1235 VITAL SIGNS ARE DOCUMENTED ON POST PROCEDURE CHECKLIST AND PART OF PAPER CHART.
--- NOTE | 2018-09-04 14:13 | NUR ---
1330 PT GOT UP TO BATHROOM WITH ASSISTANCE OF HER DAUGHTER WHO IS A NURSE. NO HEMATOMA NOTED AROUND BX SITE. DSG IS DRY AND INTACT. TOLD PT SHE IS ON BEDREST UNTIL 1500.
--- NOTE | 2018-09-04 14:15 | NUR ---
1414 PCXR COMPLETED AT PATIENT BEDSIDE.
--- NOTE | 2018-09-04 15:19 | NUR ---
1500 REPORT CALLED TO RADHA KEY RN THAT PT'S CXR IS CLEAR IS SHE IS CLEARED TO GO HOME. 1505 FINGER FOOD DIET SERVED TO PT. 1520 PT TOLERATING REGULAR DIET WITHOUT NAUSEA OR VOMITING. DRESSING IS DRY AND INTACT. NO HEMATOMA AT SITE.
--- NOTE | 2018-09-04 16:25 | NUR ---
1525 IV DC'D. CATHETER INTACT. BLEEDING STOPPED AFTER HOLDING PRESSURE. BANDAID APPLIED.
== END 2018-09-04 15:40 | disposition home or self-care (01) ==
LOC: D.SP 08:21 → D.CT 11:00 → D.SP 15:40
PROVIDERS: Radiology Vascular & Interventional Radiology; ATTEND Internal Medicine Pulmonary Disease
DX: C7A.8 Other malignant neuroendocrine tumors (principal); Z01.812 Encounter for preprocedural laboratory examination

== ENCOUNTER → 2018-10-17 16:27 | Outpatient (CLI) | payer MEDICARE ==
[2018-09-04 10:41] VITALS: BMI 22.3
[~2018-10-17 16:27] MED LIST changes: +ACETAMINOPHEN500 M1 PO; +ALEVE220 MG PO
== END | disposition home or self-care (01) ==
LOC: D.LABREF 16:27
PROVIDERS: ATTEND Internal Medicine Hematology & Oncology
DX: C34.92 Malignant neoplasm of unspecified part of left bronchus or lung (principal); E87.1 Hypo-osmolality and hyponatremia; Z51.11 Encounter for antineoplastic chemotherapy

== ENCOUNTER 2018-10-26 12:31 | Emergency (ER) | payer MEDICARE ==
[~2018-10-26] VITALS: Ht 157.5 cm; Wt 49.1 kg
[2018-10-26 12:47] VITALS: Ht 157.5 cm; Wt 49.1 kg
[2018-10-26 13:10] LABS: HEMATOCRIT 33.5 % (36.0-48.0); HEMOGLOBIN 11.7 g/dL (12-16); IMMATURE GRANULOCYTES 1.6 % (0-5); MCH 31.5 pg (26.0-34.0); MCHC 34.9 g/dL (31.0-37.0); MCV 90.3 fL (80.0-100.0); MEAN PLATELET VOLUME 9.4 fL (7.4-10.4); RBC 3.71 10x6/uL (4.00-5.40); RDW 14.3 % (11.5-14.5); WBC 5.7 10x3/uL (4.8-10.8)
[2018-10-26 13:13] LABS: PLATELET COUNT 115 10x3/uL (130-400)
[2018-10-26 13:23] LABS: ALBUMIN 3.5 g/dL (3.4-5.0); ANION GAP 10.9 mmol/L (8-16); BILIRUBIN - TOTAL 0.29 mg/dL (0.2-1.3); CALCIUM 9.1 mg/dL (8.5-10.1); CARBON DIOXIDE 27.3 mmol/L (21.0-32.0); CREATININE - SERUM 1.2 mg/dL (0.6-1.3); POTASSIUM - SERUM 4.2 mmol/L (3.5-5.1); PROTEIN - SERUM 6.7 g/dL (6.4-8.2)
[2018-10-26 14:05] LABS: LYMPHOCYTES 28 % (15-50); MONOCYTES 14 % (2-11); NEUTROPHILS 39 % (40-80)
[2018-10-26 14:06] LABS: PLATELET ESTIMATE DECREASED
[2018-10-26 14:27] LABS: COLOR YELLOW (YELLOW)
[2018-10-26 14:28] LABS: APPEARANCE TURBID (CLEAR); BILIRUBIN NEGATIVE (NEGATIVE); GLUCOSE NEGATIVE (NEGATIVE); KETONE NEGATIVE (NEGATIVE); NITRITE POSITIVE (NEGATIVE); PROTEIN 3+ mg/dL (NEGATIVE); SPECIFIC GRAVITY 1.025 (1.005-1.020); UROBILINOGEN NORMAL (NORMAL)
[2018-10-26 14:29] LABS: BACTERIA MANY /hpf (NONE SEEN); RED CELLS - URINE 0-5 /hpf (0-5); WHITE CELLS - URINE >50 /hpf (0-5)
[2018-10-26] MEDS ORDERED: MACROBID100 MG PO (15:09)
[2018-10-26 15:54] VITALS: BP 112/67
== END 2018-10-26 15:55 | disposition home or self-care (01) ==
LOC: D.ER 12:31
PROVIDERS: Family Medicine
DX: N39.0 Urinary tract infection, site not specified (principal); E87.1 Hypo-osmolality and hyponatremia; I95.9 Hypotension, unspecified; C34.90 Malignant neoplasm of unspecified part of unspecified bronchus or lung; J44.9 Chronic obstructive pulmonary disease, unspecified; I73.9 Peripheral vascular disease, unspecified; K21.9 Gastro-esophageal reflux disease without esophagitis; M81.0 Age-related osteoporosis without current pathological fracture

== ENCOUNTER → 2019-04-23 10:56 | Outpatient (CLI) | payer MEDICARE ==
[2018-10-26 12:47] VITALS: BMI 19.8
[~2019-04-23 10:56] MED LIST changes: +MACROBID100 MG PO
== END | disposition home or self-care (01) ==
LOC: D.MRI 10:56
PROVIDERS: ATTEND Internal Medicine Hematology & Oncology
DX: C34.92 Malignant neoplasm of unspecified part of left bronchus or lung (principal)